=== PATIENT | female | born 1935 | race Caucasian/White ===

== ENCOUNTER 2016-09-11 11:46 | Inpatient (IN) | payer MEDICARE, OTHER ==
[2016-09-11] VITALS (9 sets, daily range): BP systolic 138–170; BP diastolic 58–87; PULSE 77–88; RESP 14–20; TEMP 96.9–98.7; O2SAT 93–98
[~2016-09-11] VITALS: Ht 152.4 cm; Wt 59.0 kg
[~2016-09-11 11:46] MED LIST: CALC1CHW30 CHEW; DONE10TA7 PO; ERGO1CAP10 PO; MEMA28CA PO; PANT40TA3 PO; POTA8TAB3 PO; RISP0.252 PO
--- NOTE | 2016-09-11 12:20 | PD ---
HPI . Painful lesion on her right gregory Chief Complaint: Skin Problem Time Seen by Provider: 12:04 Travel History International Travel<30 days: No Contact w/Intl Traveler<30days: No Traveled to known affect area: No History of Present Illness HPI The patient presents with her elderly with the chief complaint of a painful lesion on her right gregory. They do not know how it is that she obtained the lesion. They think that his been there for a couple of weeks. She has been seen by her primary care physician for same. They are using an unknown cream on the wound. She denies any associated fevers or chills or nausea or vomiting. PFSH Past Medical History Alzheimer's Disease: Yes (dementia) Arthritis: No Asthma: Yes Autoimmune Disease: No Anxiety: Yes (possible history of anxiety) Depression: No Heart Rhythm Problems: No Cancer: No Cardiovascular Problems: No High Cholesterol: Yes Chemotherapy: No Chest Pain: No Congestive Heart Failure: No COPD: No Cerebrovascular Accident: No Dementia: Yes (LEWY BODY ) Diabetes: No Diminished Hearing: No Endocrine: No Gastrointestinal Disorders: No GERD: Yes Genitourinary: Yes (UTI) Headaches: Yes Hepatitis: No Heparin Induced Thrombocytopen: No Hypertension: Yes Implanted Vascular Access Dvce: No Insomnia: Yes Kidney Stones: No Medical other: Yes (GERD; ESOPHAGEAL STRICTURE(PT HAD EGD WITH DILATION )) Musculoskeletal: Yes (DEGERATIVE DISK DZ) Neurologic: No Psychiatric: No Reproductive: No Respiratory: Yes (SLEEP APNEA; ASTHMA) Immunizations Current: Yes Migraines: No Radiation Therapy: No Renal Failure: No Seizures: No Sickle Cell Disease: No Sleep Apnea: No Thyroid Disease: No Ulcer: No PNEUMOCCOCAL Vaccine (Year): 1 Menopausal: Yes Past Surgical History Abdominal Surgery: Yes (CHOLECYSTECTOMY) Arteriovenous Shunt: No Cholecystectomy: Yes Joint Replacement: Yes (HIP LEFT) Neurologic Surgery: Yes (LUMBAR LAMINECTOMY) Oral Surgery: Yes (AGE 5 T&A) Pacemaker: No Thoracic Surgery: No Other Surgery: Yes Social History Alcohol Use: Yes (OCC WINE WITH DINNER) Tobacco Use: No Substance Use: No Allergies-Medications (Allergen,Severity, Reaction): Coded Allergies: Latex (Unverified Allergy, Intermediate, Rash, 08/31/16) Loblolly [place] Tree (Verified Allergy, Intermediate, Hives, 08/31/16) Hives and sneezing Cardizem (Verified Allergy, Mild, FAINTING, 08/31/16) Egg Allergy (Verified Allergy, Mild, Nausea/Vomiting, 08/31/16) Neosporin (Verified Allergy, Mild, EDEMA OF EYES, 08/31/16) Tetanus Immune Globulin (Verified Allergy, Mild, EDEMA OF ARMS, 08/31/16) Tofranil (Verified Allergy, Mild, VISUAL DISTURBANCE, 08/31/16) Valium (Verified Allergy, Mild, AGITATION, 08/31/16) Lactose (Verified Adverse Reaction, Mild, 08/31/16) Reported Meds & Prescriptions Reported Meds & Active Scripts Active Reported Potassium Chloride CR (Potassium Chloride) 8 Meq Tab 8 Meq PO BID Vitamin D (Ergocalciferol) 50,000 Unit Cap 50,000 Units PO Q7D Citracal+D3 (Hjmfger-Kzbwwbsfnp-Mxnmymu D) 250-107-500 Mg-Mg-Unit Chew 1 Ea CHEW TID Namenda Xr (Memantine) 28 Mg Caper 28 Mg PO DAILY Pantoprazole (Pantoprazole Sodium) 40 Mg Tab 40 Mg PO DAILY Donepezil 10 Mg Tab 10 Mg PO BID Risperidone 0.25 Mg Tab 0.25 Mg PO DAILY Review of Systems ROS Limitations: Poor Historian (patient has dementia) Except as stated in HPI: all other systems reviewed are Neg General / Constitutional: No: Fever, Chills Gastrointestinal: No: Nausea, Vomiting Musculoskeletal: Positive: Pain Skin: Positive Lesions Physical Exam Narrative GENERAL: Pleasantly confused elderly woman in no acute distress SKIN: Warm and dry. She has an ulcerative lesion to the right anterior gregory. There is some surrounding erythema but no warmth. It does not seem to be tender to her. There is no lymphangitis or lymphadenopathy. HEAD: Atraumatic. Normocephalic. EYES: Pupils equal and round. ENT: No nasal bleeding or discharge. Mucous membranes pink and moist. NECK: Trachea midline. CARDIOVASCULAR: Regular rate and rhythm. RESPIRATORY: No accessory muscle use. MUSCULOSKELETAL: No obvious deformities. No edema. NEUROLOGICAL: Awake and alert. No obvious cranial nerve deficits. Motor grossly within normal limits. Normal speech. PSYCHIATRIC: Appropriate mood and affect; confused Data Data Last Documented VS Vital Signs Date Time Temp Pulse Resp B/P Pulse Ox O2 Delivery O2 Flow Rate FiO2 09/11/16 13:35 77 18 143/82 95 Room Air 09/11/16 11:53 98.7 Orders Complete Blood Count With Diff (09/11/16 12:13) Blood Culture (09/11/16 12:13) Wound Culture And Gram Stain (09/11/16 12:13) Westergren Sedimentation Rate (09/11/16 12:13) Tibia/Fibula (Ap/Lat) (09/11/16 12:13) Lactic Acid (09/11/16 12:38) Cefazolin 2 Gm Premix (Ancef 2 Gm Premix (09/11/16 13:45) Comprehensive Metabolic Panel (09/11/16 14:10) Labs Laboratory Tests Test 09/11/16 09/11/16 12:35 12:43 White Blood Count 15.6 TH/MM3 Red Blood Count 4.95 MIL/MM3 Hemoglobin 14.4 GM/DL Hematocrit 43.6 % Mean Corpuscular Volume 88.0 FL Mean Corpuscular Hemoglobin 29.1 PG Mean Corpuscular Hemoglobin 33.0 % Concent Red Cell Distribution Width 13.5 % Platelet Count 227 TH/MM3 Mean Platelet Volume 9.3 FL Neutrophils (%) (Auto) 67.6 % Lymphocytes (%) (Auto) 18.4 % Monocytes (%) (Auto) 11.5 % Eosinophils (%) (Auto) 1.4 % Basophils (%) (Auto) 1.1 % Neutrophils # (Auto) 10.6 TH/MM3 Lymphocytes # (Auto) 2.9 TH/MM3 Monocytes # (Auto) 1.8 TH/MM3 Eosinophils # (Auto) 0.2 TH/MM3 Basophils # (Auto) 0.2 TH/MM3 CBC Comment DIFF FINAL Differential Comment Lactic Acid Level 1.3 mmol/L MDM Medical Decision Making Medical Screen Exam Complete: Yes Emergency Medical Condition: Yes Medical Record Reviewed: Yes (patient was seen in the emergency department on 08/21 for same. The patient had been seen by her primary care provider 2 days prior and was given prescriptions for ammonium lactate and Keflex. She had been using the ammonium lactate but had not yet had the Keflex filled. She was discharged with instructions to take the Keflex. She has since been seen at the wound clinic but I cannot see any notes from them.) Differential Diagnosis Differential diagnosis includes but is not limited to cellulitis, osteomyelitis , sepsis Narrative Course This is an elderly patient who was not able to provide very much history. Her is also not very helpful. She comes in with a wound on her right gregory, the etiology of the wound is unknown. 1:35 PM White blood count is 15.6. Lactic acid is normal. X-ray shows no apparent bony involvement. Sedimentation rate is pending. Abdominal and talked to the again to see whether or not she ever took the Keflex. It is clear that neither the patient nor the know what they 're supposed to be doing at home. We will admit her to the hospital for IV antibiotics and possible placement into a rehabilitation facility until the infection clears. They are clearly unable to take care of this at home. Physician Communication Physician Communication Dr. Gunderson will admit Diagnosis Primary Impression: Cellulitis of right leg Admitting Information Admitting Physician Requests: Admit Condition: Stable Leny Jimenez MD Sep 11, 2016 12:20
[2016-09-11 12:58] LABS: AUTOMATED NEUTROPHIL # 10.6 TH/MM3 (1.8-7.7); BASOPHIL # 0.2 TH/MM3 (0-0.2); BASOPHIL % 1.1 % (0.0-2.0); EOSINOPHIL # 0.2 TH/MM3 (0-0.4); EOSINOPHIL % 1.4 % (0.0-4.0); HEMATOCRIT 43.6 % (35.0-46.0); HEMO FLAGS DIFF FINAL; LYMPH % 18.4 % (9.0-44.0); LYMPHOCYTE # 2.9 TH/MM3 (1.0-4.8); MEAN CORPUSCULAR HEMOGLOBIN 29.1 PG (27.0-34.0); MONO % 11.5 % (0.0-8.0); NEUT % 67.6 % (16.0-70.0); PLATELET COUNT 227 TH/MM3 (150-450); RED BLOOD COUNT 4.95 MIL/MM3 (4.00-5.30); RED CELL DISTRIBUTION WIDTH 13.5 % (11.6-17.2); WHITE BLOOD COUNT 15.6 TH/MM3 (4.0-11.0)
--- NOTE | 2016-09-11 13:04 | RADRPT ---
EXAM DATE/TIME: 09/11/2016 12:58 [facility] COMPARISON: No previous studies available for comparison. INDICATIONS : Ulceration on right lower leg for 2 weeks MEDICAL HISTORY : None. SURGICAL HISTORY : None. ENCOUNTER: Initial ACUITY: 2 weeks PAIN SCORE: 0/10 LOCATION: Right anterior lower leg FINDINGS: Two view examination of the right tibia demonstrates no evidence of fracture or dislocation. Bony mi neralization is normal. Focal soft tissue ulceration anterior distal tibia without subcutaneous emphy sema. CONCLUSION: Soft tissue injury as above. Ed Beauchamp MD on September 11, 2016 at 13:02 Board Certified Radiologist. This report was verified electronically.
[2016-09-11] MEDS ORDERED: ceFAZolin 2 GM PREMIX 50 ML IV ONE (13:45)
[2016-09-11] MEDS ORDERED: SODIUM CHLORIDE 0.9% FLUSH 5 ML FLUSH FLUSH PRN (14:15)
[2016-09-11] MEDS ORDERED: NALOXONE HCL 0.4 MG/ML AMP IV PRN (14:15)
[2016-09-11 14:57] LABS: ALKALINE PHOSPHATASE 59 U/L (45-117); ALT (GPT) 32 U/L (10-53); ANION GAP 12 MEQ/L (5-15); AST (GOT) 45 U/L (15-37); BLOOD UREA NITROGEN 9 MG/DL (7-18); CHLORIDE 100 MEQ/L (98-107); GLOMERULAR FILTRATION RATE 79 ML/MIN (>89); POTASSIUM 3.7 MEQ/L (3.5-5.1); SODIUM (NA) 139 MEQ/L (136-145); TOTAL BILIRUBIN ADULT 0.8 MG/DL (0.2-1.0)
[2016-09-11] MEDS: HEPARIN SODIUM - SQ 10,000 UNITS/ML VIAL SQ SCH (16:18)
[2016-09-11] MEDS: CALCIUM/VITAMIN D 250 MG/125 U TAB PO SCH (18:10)
--- NOTE | 2016-09-11 20:00 | HHI.HP ---
HPI Service [facility] Primary Care Physician Anneliese Michael MD Admission Diagnosis cellutlitis Diagnoses: Travel History International Travel<30 Days: No Contact w/Intl Traveler <30 Da: No Traveled to Known Affected Are: No History of Present Illness Patient is a pleasant 81-year-old female with severe dementia who presents with a one-month history of right lower extremity swelling. She's been seen in wound clinic, antibiotics prescribed, but apparently not administered. Biopsy performed from right lower extremity lesion on 08/31/16 shows well- differentiated squamous cell carcinoma. Patient has severe dementia, no short- term memory, and confounds to make up for her deficits, making history extremely difficult. Patient denies any pain. Says she feels fine. She does not know why she here, but when asked about right lower extremity lesion, says she thinks it started yesterday. , who is an extremely polite gentleman , and is oriented x3 reports that her right lower extremity lesion has been going on for about a month; he is extremely pleasant, however it is apparent that he has little understanding of patient's medical conditions, her medications, and is not aware that she was started on antibiotics. He denies that she has had any fevers or is been complaining of pain or discomfort, or dysuria. He brought her in because the right lower extremity redness was not getting any better Both patient and give me permission to discuss her case with any of her family members. I discussed with her son, who confirms that patient's may have difficulty with understanding intricacies of medical treatment. Discussed with him the biopsy on 08/31 which was positive for squamous cell carcinoma. We discussed the need for the family to be present to assist with organizing medications and arranging outpatient followup. He says he will be in town tomorrow. Review of Systems Other performed and negative except for history of present illness and past medical history. Past Family Social History Past Medical History Severe Alzheimer's dementia GERD History of esophageal stricture with dilation in 2000. Past Surgical History Right hip fracture status post ORIF Dilation of esophageal stricture in 2000 Right rotator cuff repair Cholecystectomy Allergies: Coded Allergies: Latex (Unverified Allergy, Intermediate, Rash, 08/31/16) Loblolly [place] Tree (Verified Allergy, Intermediate, Hives, 08/31/16) Hives and sneezing Cardizem (Verified Allergy, Mild, FAINTING, 08/31/16) Egg Allergy (Verified Allergy, Mild, Nausea/Vomiting, 08/31/16) Neosporin (Verified Allergy, Mild, EDEMA OF EYES, 08/31/16) Tetanus Immune Globulin (Verified Allergy, Mild, EDEMA OF ARMS, 08/31/16) Tofranil (Verified Allergy, Mild, VISUAL DISTURBANCE, 08/31/16) Valium (Verified Allergy, Mild, AGITATION, 08/31/16) Lactose (Verified Adverse Reaction, Mild, 08/31/16) Family History family history unobtainable, patient does not remember. Social History Nonsmoker. Nondrinker. Denies illicit drugs. Lives with her . Physical Exam Vital Signs Vital Signs Date Time Temp Pulse Resp B/P Pulse Ox O2 Delivery O2 Flow Rate FiO2 09/11/16 18:30 138/60 09/11/16 17:10 96.9 79 20 168/64 98 09/11/16 16:16 98.3 80 18 170/74 94 Room Air 09/11/16 13:35 77 18 143/82 95 Room Air 09/11/16 12:06 83 18 09/11/16 12:06 84 18 148/82 95 Room Air 09/11/16 11:53 98.7 88 14 153/87 93 Physical Exam GENERAL: This is a well-nourished, well-developed patient, in no apparent distress.she is alert, however disoriented x4. No short-term memory beyond a few minutes. SKIN: No rashes, ecchymoses or lesions. Cool and dry. HEAD: Atraumatic. Normocephalic. No temporal or scalp tenderness. EYES: Pupils equal round and reactive. Extraocular motions intact. No scleral icterus. No injection or drainage. ENT: Nose without bleeding, purulent drainage or septal hematoma. Throat without erythema, tonsillar hypertrophy or exudate. Uvula midline. Airway patent. NECK: Trachea midline. No JVD or lymphadenopathy. Supple, nontender, no meningeal signs. CARDIOVASCULAR: Regular rate and rhythm without murmurs, gallops, or rubs. RESPIRATORY: Clear to auscultation. Breath sounds equal bilaterally. No wheezes , rales, or rhonchi. GASTROINTESTINAL: Abdomen soft, non-tender, nondistended. No hepato-splenomegaly , or palpable masses. No guarding. MUSCULOSKELETAL: Extremities without clubbing, cyanosis. negative Homans sign bilaterally. Right lower extremity with 3 x 3 cm raised noninfected appearing lesion, at the edge of this lesion is a small skin tear, surrounding erythema for several centimeters circumferentially. No abscess or drainage. NEUROLOGICAL: Awake and alert. Cranial nerves II through XII intact. Motor and sensory grossly within normal limits. Five out of 5 muscle strength in all muscle groups. speech his overall intelligible, however significant word finding difficulty, occasional slurred words at times. reports is baseline. Laboratory Laboratory Tests Test 09/11/16 09/11/16 09/11/16 09/11/16 12:35 12:38 12:43 14:22 White Blood Count 15.6 Red Blood Count 4.95 Hemoglobin 14.4 Hematocrit 43.6 Mean Corpuscular Volume 88.0 Mean Corpuscular Hemoglobin 29.1 Mean Corpuscular Hemoglobin 33.0 Concent Red Cell Distribution Width 13.5 Platelet Count 227 Mean Platelet Volume 9.3 Neutrophils (%) (Auto) 67.6 Lymphocytes (%) (Auto) 18.4 Monocytes (%) (Auto) 11.5 Eosinophils (%) (Auto) 1.4 Basophils (%) (Auto) 1.1 Neutrophils # (Auto) 10.6 Lymphocytes # (Auto) 2.9 Monocytes # (Auto) 1.8 Eosinophils # (Auto) 0.2 Basophils # (Auto) 0.2 CBC Comment DIFF FINAL Differential Comment Erythrocyte Sedimentation Rate 8 Lactic Acid Level 1.3 Sodium Level 139 Potassium Level 3.7 Chloride Level 100 Carbon Dioxide Level 27.0 Anion Gap 12 Blood Urea Nitrogen 9 Creatinine 0.71 Estimat Glomerular Filtration 79 Rate Random Glucose 82 Calcium Level 9.2 Total Bilirubin 0.8 Aspartate Amino Transf 45 (AST/SGOT) Alanine Aminotransferase 32 (ALT/SGPT) Alkaline Phosphatase 59 Total Protein 8.5 Albumin 4.2 Date/Time Procedure Status Source Growth 09/11/16 12:35 Aerobic Blood Culture Received Blood Peripheral Pending 09/11/16 12:35 Anaerobic Blood Culture Received Blood Peripheral Pending Result Diagram: 09/11/16 9166 09/11/16 1422 Assessment and Plan Assessment and Plan //Right lower extremity cellulitis //Right lower extremity squamous cell carcinoma on biopsy 08/31/16 /Failure of outpatient treatment/ - Failure of outpatient treatment, have not been taking antibiotics. does not appear to be able to adequately manage patient's care at home without family assistance. - X-ray negative for osteomyelitis. Blood cultures ordered by ER. - Leukocytosis 15. Vitals and labs appear stable. -Continue on cefazolin scheduled. Serial exams. -Son to arrive tomorrow, and to assist in patient's care //Dementia. Continue home medications. Reorientation necessary. Discussed with patient's son on admission. She has had delirium in the hospital before. - Continue medications. If she develops agitation, would recommend Seroquel as needed //GERD. Continue medications. //prophylaxis. Heparin. Code Status full code per patient and . Discussed Condition With patient, , ED physician, patient's son over the phone. Physician Certification 2 Midnight Certification Type: Admission for Inpatient Services Order for Inpatient Services The services are ordered in accordance with Medicare regulations or non- Medicare payer requirements, as applicable. In the case of services not specified as inpatient-only, they are appropriately provided as inpatient services in accordance with the 2-midnight benchmark. Estimated LOS (days): 3 days is the estimated time the patient will need to remain in the hospital, assuming treatment plan goals are met and no additional complications. Post-Hospital Plan: Not yet determined Rashaad Gunderson MD Sep 11, 2016 20:00
[2016-09-11] MEDS: SODIUM CHLORIDE 0.9% FLUSH 5 ML FLUSH FLUSH SCH (21:43)
[2016-09-11] MEDS: DONEPEZIL HCL 5 MG TAB PO SCH (21:43)
[2016-09-11] MEDS: POTASSIUM CHLORIDE 8 MEQ CONTROLLED RELEASE TAB PO SCH (22:45)
[2016-09-12] MEDS: HEPARIN SODIUM - SQ 10,000 UNITS/ML VIAL SQ SCH ×2 (02:35→13:18)
[2016-09-12 07:00] LABS: BICARBONATE 25.7 MEQ/L (21.0-32.0); POTASSIUM 3.7 MEQ/L (3.5-5.1)
[2016-09-12 07:07] LABS: AUTOMATED NEUTROPHIL # 10.2 TH/MM3 (1.8-7.7); BASOPHIL # 0.2 TH/MM3 (0-0.2); EOSINOPHIL # 0.2 TH/MM3 (0-0.4); EOSINOPHIL % 1.3 % (0.0-4.0); HEMATOCRIT 40.9 % (35.0-46.0); HEMO FLAGS DIFF FINAL; LYMPH % 22.2 % (9.0-44.0); LYMPHOCYTE # 3.6 TH/MM3 (1.0-4.8); MEAN CELL VOLUME 87.4 FL (80.0-100.0); MEAN CORPUSCULAR HEMOGLOBIN 28.8 PG (27.0-34.0); NEUT % 63.5 % (16.0-70.0); PLATELET COUNT 208 TH/MM3 (150-450); RED BLOOD COUNT 4.68 MIL/MM3 (4.00-5.30); RED CELL DISTRIBUTION WIDTH 13.8 % (11.6-17.2); WHITE BLOOD COUNT 16.1 TH/MM3 (4.0-11.0)
[2016-09-12 08:00] VITALS: BP 120/64; PULSE 75; RESP 16; TEMP 97.6; O2SAT 96
[2016-09-12] MEDS: SODIUM CHLORIDE 0.9% FLUSH 5 ML FLUSH FLUSH SCH ×2 (08:15→20:09)
[2016-09-12] MEDS: risperiDONE 0.25 MG TAB PO SCH (08:15)
[2016-09-12] MEDS: PANTOPRAZOLE SOD 40 MG DELAYED RELEASE TAB PO SCH (08:15)
[2016-09-12] MEDS: CALCIUM/VITAMIN D 250 MG/125 U TAB PO SCH ×3 (08:15→17:31)
[2016-09-12] MEDS: POTASSIUM CHLORIDE 8 MEQ CONTROLLED RELEASE TAB PO SCH ×2 (08:15→20:08)
[2016-09-12] MEDS: DONEPEZIL HCL 5 MG TAB PO SCH ×2 (08:15→20:08)
--- NOTE | 2016-09-12 11:56 | HHI.PR ---
Subjective Remarks Follow up for RLE cellulitis and squamous cell carcinoma. The patient is drowsy but awakens easily. Oriented to self only. The patient just reports continued pain at the site of the infection, otherwise denies any other medical complaints. Denies any fevers/chills, chest pain, shortness of breath, nausea/ vomiting. The is at bedside. Explained the infection can be treated with oral antibiotics, he verbalized some understanding. Will discuss with the son. They plan to follow up with her PCP Dr. Michael. Objective Vitals Vital Signs Date Time Temp Pulse Resp B/P Pulse Ox O2 Delivery O2 Flow Rate FiO2 09/12/16 08:00 97.6 75 16 120/64 96 09/11/16 23:51 97.6 79 16 168/58 95 09/11/16 20:36 93 21 09/11/16 20:06 97.7 80 18 149/73 96 09/11/16 18:30 138/60 09/11/16 17:10 96.9 79 20 168/64 98 09/11/16 16:16 98.3 80 18 170/74 94 Room Air 09/11/16 13:35 77 18 143/82 95 Room Air 09/11/16 12:06 83 18 09/11/16 12:06 84 18 148/82 95 Room Air 09/11/16 11:53 98.7 88 14 153/87 93 I/O 09/11/16 09/11/16 09/11/16 09/12/16 09/12/16 09/12/16 07:00 15:00 23:00 07:00 15:00 23:00 Intake Total 580 ml 480 ml Balance 580 ml 480 ml Intake Oral 480 ml 380 ml IV Total 100 ml 100 ml # Voids 3 3 Result Diagram: 09/12/16 0539 09/12/16 0539 Imaging Last Impressions Tibia/Fibula X-Ray 09/11/16 1213 Signed Impressions: Service Date/Time: Sunday, September 11, 2016 12:58 - CONCLUSION: Soft tissue injury as above. Ed Beauchamp MD Objective Remarks GENERAL: Well-nourished, well-developed pleasantly confused elderly female patient in NAD. Significantly diminished short term memor. SKIN: Warm and dry. No rash. HEAD: Normocephalic. Atraumatic. ENT: No nasal bleeding or discharge. Mucous membranes pink and moist. NECK: Supple. Trachea midline. CARDIOVASCULAR: Regular rate and rhythm. S1, S2 noted. No murmur appreciated. RESPIRATORY: No accessory muscle use. Clear to auscultation. Breath sounds equal bilaterally. GASTROINTESTINAL: Abdomen soft, non-tender, nondistended. Normoactive bowel sounds x4. MUSCULOSKELETAL: Extremities without clubbing, cyanosis, or edema. RLE with 3 x 3 cm raised noninfected appearing lesion, at the edge of this lesion is a small skin tear, surrounding erythema for 2-3cm circumferentially. No abscess or drainage. NEUROLOGICAL: Awake and alert, oriented to self only. Motor grossly within normal limits. Normal speech, overall intelligible, however significant word finding difficulty (reportedly this is baseline per at bedside). PSYCHIATRIC: Appropriate mood and affect; insight and judgment limited. Medications and IVs Current Medications Medications (Trade) Dose Ordered Sig/Loc Route Start Time Stop Time Status Last Admin (NS Flush) 2 ml UNSCH PRN FLUSH 09/11/16 14:15 (NS Flush) 2 ml BID FLUSH 09/11/16 21:00 09/12/16 08:15 (Heparin Inj) 5,000 units Q12H SQ 09/11/16 14:15 09/12/16 02:35 (Narcan Inj) 0.4 mg UNSCH PRN IV 09/11/16 14:15 (Aricept) 10 mg BID PO 09/11/16 21:00 09/12/16 08:15 (Protonix) 40 mg DAILY PO 09/12/16 09:00 09/12/16 08:15 (KCl) 8 meq BID PO 09/11/16 21:00 09/12/16 08:15 (risperDAL) 0.25 mg DAILY PO 09/12/16 09:00 09/12/16 08:15 (Oscal-D 250-125) 250 mg TID PO 09/11/16 18:00 09/12/16 08:15 Non-Formulary Medication 28 mg 28 mg DAILY PO 09/12/16 09:00 UNV (Ancef Inj/NS Inj) 100 ml @ 200 mls/hr Q8H IV 09/11/16 22:00 09/12/16 05:55 Urinary Catheter: No Vascular Central Line Catheter: No A/P Problem List: (1) Cellulitis of right leg ICD Code: L03.115 Status: Acute Assessment and Plan 81-year-old female with: //Right lower extremity cellulitis //Right 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 does not appear to be able to adequately manage patient's care at home without family assistance. - X-ray negative for osteomyelitis. Blood cultures negative x1day. - Leukocytosis 15, consistent with previous WBCs. Vitals and labs appear stable. - Continue on IV cefazolin. Serial exams. -Son to arrive today and to assist in patient's care, will discharge on po Keflex, outpatient f/up with PCP - PT recommending [facility], case management consulted //Dementia. Continue home medications. Reorientation necessary. Discussed with patient's son on admission. She has had delirium in the hospital before. - Continue medications. If she develops agitation, would recommend Seroquel as needed. - calm overnight //GERD. Continue medications. //leukocytosis. This is chronic.unknown cause. Patient may have underlying malignancy. Recommend followup with primary care,, oncology referral as outpatient. //prophylaxis. Heparin. Written by Mary Ellen Acosta, acting as scribe for Dr. Gunderson on 09/12/16 at 10:20. The documentation accurately reflects the work performed [id number] by az, Dr. Gunderson on 09/12/16 at 10:20. Discharge Planning Discharge patient to home with [facility] PT/Nursing/Cafeteria Counter Attendant ( son needs to be informed, and in agreement with discharge plan.) Condition on discharge: Improved Regular Diet as tolerated Ad Irma activity, use walker Rx written: Keflex 500mg q8h [id number] Follow-up with primary care physician Dr. Michael in 2-3 days Mary Ellen Acosta PA-C Sep 12, 2016 11:56 Rashaad Gunderson MD Sep 12, 2016 23:04
[2016-09-12 12:00] VITALS: BP 126/59; PULSE 70; RESP 16; TEMP 97.4; O2SAT 92
[2016-09-12] MEDS ORDERED: CEPH500C PO (15:32)
--- NOTE | 2016-09-12 15:33 | HHI.DCPOC ---
Discharge Care Plan Diagnosis: (1) Cellulitis of right leg Your Health Problems Are: Inflammation Swelling Goals to Promote Your Health * To prevent worsening of your condition and complications * To maintain your health at the optimal level Directions to Meet Your Goals Take your medications as prescribed Follow your dietary instruction Follow activity as directed Keep your appointments as scheduled Take your immunizations and boosters as scheduled If your symptoms worsen call your PCP, if no PCP go to Urgent Care Center or Emergency Room Smoking is Dangerous to Your Health. Avoid second hand smoke Call the 24-hour hour crisis hotline for domestic abuse at Mary Ellen Acosta PA-C Sep 12, 2016 15:33
--- NOTE | 2016-09-12 15:35 | HHI.FF ---
Face to Face Verification Diagnosis: (1) Cellulitis of right leg (2) Impaired mobility and activities of daily living (3) Dementia (4) GERD (gastroesophageal reflux disease) Physical Therapy Order: Evaluate and Treat, Improve ambulation, Strength and gait training Home Health Nursing Order: Medical education Signs/symptoms of disease process Nursing assessment with vital signs Instructions: patient will need home health nurse to set up and monitor medications twice- weekly. Anchor Tack Puller Order: To Evaluate: Living conditions/environment, Support services Order: To Provide: Long range planning, Community services I have seen patient Paige Mendosa on 09/12/16. My clinical findings support the need for the requested home health care services because: Ltd mobility - disease progression Deconditioned w/ increased weakness Med compliance is questionable Limited ability to care for self Need for psychosocial assistance Impaired cognition/judgement Infection w/ risk of complications I certify that my clinical findings support that this patient is homebound because: Impaired cognitive ability/safety Unsteady gait/balance Unsafe to leave home unassisted Need for psychosocial assistance Unable to use public transportation Mary Ellen Acosta PA-C Sep 12, 2016 15:35 Rashaad Gunderson MD Sep 12, 2016 22:51
[2016-09-12] MEDS ORDERED: WALKER WHEELS/F1 MIS (15:38)
[2016-09-12 16:00] VITALS: BP 134/64; PULSE 81; RESP 17; TEMP 97.1; O2SAT 95
[2016-09-12 20:00] VITALS: BP 142/68; PULSE 80; RESP 17; TEMP 96.9; O2SAT 97
[2016-09-13] VITALS: BP 167/72; PULSE 78; RESP 17; TEMP 97.6; O2SAT 94
[2016-09-13] MEDS: HEPARIN SODIUM - SQ 10,000 UNITS/ML VIAL SQ SCH ×2 (02:37→14:15)
[2016-09-13 08:00] VITALS: BP 122/60; PULSE 77; RESP 16; TEMP 98.4; O2SAT 93
[2016-09-13] MEDS: DONEPEZIL HCL 5 MG TAB PO SCH (09:30)
[2016-09-13] MEDS: POTASSIUM CHLORIDE 8 MEQ CONTROLLED RELEASE TAB PO SCH (09:30)
[2016-09-13] MEDS: PANTOPRAZOLE SOD 40 MG DELAYED RELEASE TAB PO SCH (09:30)
[2016-09-13] MEDS: risperiDONE 0.25 MG TAB PO SCH (09:30)
[2016-09-13] MEDS: CALCIUM/VITAMIN D 250 MG/125 U TAB PO SCH ×2 (09:30→13:00)
[2016-09-13] MEDS ORDERED: ACETAMINOPHEN 325 MG TAB PO PRN (11:00)
[2016-09-13 12:00] VITALS: BP 117/57; PULSE 75; RESP 17; TEMP 97.4; O2SAT 93
[2016-09-13 12:05] LABS: BACTERIA, URINE RARE /hpf; BLOOD, URINE NEG (NEG); COMMENT (UR) CULTURE INDICATED; CULTURE IF INDICATED CULTURE INDICATED; GLUCOSE,URINE NEG (NEG); KETONE, URINE NEG (NEG); MUCUS URINE FEW /lpf (OCC); NITRITE,URINE NEG (NEG); PH, URINE 5.5 (5.0-8.5); SQUAMOUS EPITHELIAL CELL URINE 5 /hpf (0-5); TRANSITIONAL EPI CELLS, URINE <1 /hpf; URINE COLOR YELLOW (YELLW/STRAW)
[2016-09-13 12:43] LABS: BICARBONATE 27.2 MEQ/L (21.0-32.0); POTASSIUM 3.7 MEQ/L (3.5-5.1)
[2016-09-13] MEDS ORDERED: AMOX500T PO (13:45)
[2016-09-13] MEDS ORDERED: BACT800T5 PO (13:45)
[2016-09-13] MEDS ORDERED: CEPHALEXIN MONOHYDRATE 500 MG CAP PO SCH (14:00)
[2016-09-13] MEDS ORDERED: FLOR250C PO (14:56)
[2016-09-13 16:00] VITALS: BP 119/62; PULSE 76; RESP 16; TEMP 96.3; O2SAT 92
--- NOTE | 2016-09-13 17:11 | HHI.PR ---
Subjective Remarks Patient seen today around 10:30 AM. and son at bedside. -Initially nursing reported that patient had burning with urination. Patient denies burning with urination. She is very suggestible. Upon telling her that somebody had reported that she has burning with urination she says that it may have started sometime ago. Discussed with son, she employs confounding frequently. Nursing later reports the patient denies any dysuria. There've been some concern over patient's pannus being tender, however patient subsequently denies any tenderness. Discussed with nursing. No fevers reported. The son has gone to patient's house, found that she only took half of her prescription for Keflex. Given that there is no improvement on Keflex as outpatient, will switch to amoxicillin and Bactrim. Discussed with son several times throughout the day. He is grateful for home health. He will make sure that patient feels and receives all of her medications. He says he is confident that patient's and patient and take care of day-to-day activities, activities of daily living, but do need help with medications, and arrange outpatient appointments. He says he will help with this. Objective Vital Signs Date Time Temp Pulse Resp B/P Pulse Ox O2 Delivery O2 Flow Rate FiO2 09/13/16 16:00 96.3 76 16 119/62 92 09/13/16 12:00 97.4 75 17 117/57 93 09/13/16 08:00 98.4 77 16 122/60 93 09/13/16 00:00 97.6 78 17 167/72 94 09/12/16 20:00 96.9 80 17 142/68 97 I/O 09/12/16 09/12/16 09/12/16 09/13/16 09/13/16 09/13/16 07:00 15:00 23:00 07:00 15:00 23:00 Intake Total 480 ml 1180 ml 340 ml 340 ml 360 ml Output Total 300 ml 1600 ml 250 ml 400 ml Balance 480 ml 880 ml -1260 ml 90 ml -40 ml Intake Oral 380 ml 1080 ml 240 ml 240 ml 360 ml IV Total 100 ml 100 ml 100 ml 100 ml Output Urine Total 300 ml 1600 ml 250 ml 400 ml Bladder Scan Volume Amount 72 ml # Voids 3 # Bowel Movements 0 2 1 Result Diagram: 09/12/16 0539 09/13/16 1212 Objective Remarks GENERAL: Patient awake, alert. Completely disoriented as before. Still with word finding difficulty and occasional slurred words. At baseline per her and son at bedside. SKIN: Warm and dry. HEAD: Normocephalic. EYES: No scleral icterus. No injection or drainage. NECK: Supple, trachea midline. No JVD. CARDIOVASCULAR: Regular rate and rhythm without murmurs, gallops, or rubs. RESPIRATORY: Breath sounds equal bilaterally. No accessory muscle use. GASTROINTESTINAL: Abdomen soft, non-tender, nondistended. MUSCULOSKELETAL: No cyanosis, or edema. Right lower extremity with 3 x 3 noninfected appearing raised skin lesion, with small area broken skin, likely from recent biopsy at the periphery. Today still with 2-3 cm of surrounding erythema, however this is again central sterile technician than yesterday. BACK: Nontender without obvious deformity. No CVA tenderness. 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 does not appear to be able to adequately manage patient's care at home without family assistance. - X-ray negative for osteomyelitis. Blood cultures negative x1day. - Leukocytosis 15, consistent with previous WBCs. Vitals and labs appear stable. - Continue on IV cefazolin. Serial exams. -Son to arrive today and to assist in patient's care, will discharge on po Keflex, outpatient f/up with PCP - PT recommending C, case management consulted = 09/13. Patient has an slight improvement in erythema overnight, however not almost resolved as I had expected. As patient failed course of Keflex, will move to amoxicillin and Bactrim 10 day course. We'll prescribe florastor for clostridium difficile prophylaxis. Close follow-up with wound care, primary care. Son has been very helpful, says he will ensure compliance with medication regimen. Home health for medication management ordered as well. //Dementia. Continue home medications. Reorientation necessary. Discussed with patient's son on admission. She has had delirium in the hospital before. - Continue medications. If she develops agitation, would recommend Seroquel as needed. - calm again overnight //GERD. Continue medications. //leukocytosis. This is chronic.unknown cause. Patient may have underlying malignancy. Recommend followup with primary care,, oncology referral as outpatient. Discussed with son on 09/13 the patient has chronic elevation in white blood cell count, and if continues will need hematology evaluation. //prophylaxis. Heparin. Discharge Planning Discharge home with home health for PT, medication management, public health social worker. Son will ensure patient receives her medications and follow-up. Rashaad Gunderson MD Sep 13, 2016 17:11
--- NOTE | 2016-09-13 17:20 | HHI.DS ---
cc: Charles Santacruz DPM; Anneliese Michael MD Discharge Summary Admission Date Sep 11, 2016 at 14:12 Discharge Date: Sep 13, 2016 Admitting Diagnosis cellutlitis (1) Cellulitis of right leg ICD Code: L03.115 Procedures No invasive procedures performed. Brief History - From Admission Patient is a pleasant 81-year-old female with severe dementia who presents with a one-month history of right lower extremity swelling. She's been seen in wound clinic, antibiotics prescribed, but apparently not administered. Biopsy performed from right lower extremity lesion on 08/31/16 shows well- differentiated squamous cell carcinoma. Patient has severe dementia, no short- term memory, and confounds to make up for her deficits, making history extremely difficult. Patient denies any pain. Says she feels fine. She does not know why she here, but when asked about right lower extremity lesion, says she thinks it started yesterday. , who is an extremely polite gentleman , and is oriented x3 reports that her right lower extremity lesion has been going on for about a month; he is extremely pleasant, however it is apparent that he has little understanding of patient's medical conditions, her medications, and is not aware that she was started on antibiotics. He denies that she has had any fevers or is been complaining of pain or discomfort, or dysuria. He brought her in because the right lower extremity redness was not getting any better Both patient and give me permission to discuss her case with any of her family members. I discussed with her son, who confirms that patient's may have difficulty with understanding intricacies of medical treatment. Discussed with him the biopsy on 08/31 which was positive for squamous cell carcinoma. We discussed the need for the family to be present to assist with organizing medications and arranging outpatient followup. He says he will be in town tomorrow. CBC/BMP: 09/12/16 0539 09/13/16 1212 Significant Findings Laboratory Tests Test 09/11/16 09/11/16 09/12/16 09/13/16 12:35 14:22 05:39 11:40 White Blood Count 15.6 TH/MM3 16.1 TH/MM3 (4.0-11.0) (4.0-11.0) Monocytes (%) (Auto) 11.5 % 12.0 % (0.0-8.0) (0.0-8.0) Neutrophils # (Auto) 10.6 TH/MM3 10.2 TH/MM3 (1.8-7.7) (1.8-7.7) Monocytes # (Auto) 1.8 TH/MM3 1.9 TH/MM3 (0-0.9) (0-0.9) Estimat Glomerular Filtration 79 ML/MIN (>89) Rate Aspartate Amino Transf 45 U/L (15-37) (AST/SGOT) Total Protein 8.5 GM/DL (6.4-8.2) Urine Turbidity HAZY (CLEAR) Urine Leukocyte Esterase MOD (NEG) Urine WBC 23 /hpf (0-5) Urine Bacteria RARE /hpf (NONE) Urine Mucus FEW /lpf (OCC) Test 09/13/16 12:12 Estimat Glomerular Filtration 74 ML/MIN (>89) Rate Random Glucose 114 MG/DL (74-106) Imaging Last Impressions Tibia/Fibula X-Ray 09/11/16 1213 Signed Impressions: Service Date/Time: Sunday, September 11, 2016 12:58 - CONCLUSION: Soft tissue injury as above. Ed Beauchamp MD PE at Discharge GENERAL: Well-nourished, well-developed pleasantly confused elderly female patient in [facility]. Significantly diminished short term memor. SKIN: Warm and dry. No rash. HEAD: Normocephalic. Atraumatic. ENT: No nasal bleeding or discharge. Mucous membranes pink and moist. NECK: Supple. Trachea midline. CARDIOVASCULAR: Regular rate and rhythm. S1, S2 noted. No murmur appreciated. RESPIRATORY: No accessory muscle use. Clear to auscultation. Breath sounds equal bilaterally. GASTROINTESTINAL: Abdomen soft, non-tender, nondistended. Normoactive bowel sounds x4. MUSCULOSKELETAL: Extremities without clubbing, cyanosis, or edema. RLE with 3 x 3 cm raised noninfected appearing lesion, at the edge of this lesion is a small skin tear, surrounding erythema for 2-3cm circumferentially. No abscess or drainage. NEUROLOGICAL: Awake and alert, oriented to self only. Motor grossly within normal limits. Normal speech, overall intelligible, however significant word finding difficulty (reportedly this is baseline per at bedside). PSYCHIATRIC: Appropriate mood and affect; insight and judgment limited. Hospital Course White blood cell count found to be elevated at 15, however this is at baseline. As patient had failed outpatient medical therapy, likely secondary to missed medications, she was admitted and treated with IV cefazolin. She experienced improvement in right lower extremity cellulitis. Due to concern that patient failed outpatient therapy with Keflex, treatment was switched to amoxicillin and Bactrim. We discussed with son that biopsy recently performed 08/31 as outpatient shows squamous cell carcinoma, and that she will need follow-up for this. Son agreed to assist with medications at home, and home health for medication management was ordered at discharge. Likely secondary to suggestion, patient initially denied dysuria, however subsequently reported burning with urination during admission. Urinalysis was performed from catch, however only showed 23 white blood cells, 5 squamous epithelial cells. Patient subsequently denied dysuria. She will nevertheless be on Bactrim as above. Urine culture reflexed, will need to be followed up by primary care. Patient has a history of clostridium difficile diarrhea in the past. No issues with this currently, however have ordered Florastor for prophylaxis. For problem-based summary from most recent progress note, please see below. 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 does not appear to be able to adequately manage patient's care at home without family assistance. - X-ray negative for osteomyelitis. Blood cultures negative x1day. - Leukocytosis 15, consistent with previous WBCs. Vitals and labs appear stable. - Continue on IV cefazolin. Serial exams. -Son to arrive today and to assist in patient's care, will discharge on po Keflex, outpatient f/up with PCP - PT recommending C, case management consulted = 09/13. Patient has an slight improvement in erythema overnight, however not almost resolved as I had expected. As patient failed course of Keflex, will move to amoxicillin and Bactrim 10 day course. We'll prescribe florastor for clostridium difficile prophylaxis. Close follow-up with wound care, primary care. Son has been very helpful, says he will ensure compliance with medication regimen. Home health for medication management ordered as well. //Dementia. Continue home medications. Reorientation necessary. Discussed with patient's son on admission. She has had delirium in the hospital before. - Continue medications. If she develops agitation, would recommend Seroquel as needed. - calm again overnight //GERD. Continue medications. //leukocytosis. This is chronic.unknown cause. Patient may have underlying malignancy. Recommend followup with primary care,, oncology referral as outpatient. Discussed with son on 09/13 the patient has chronic elevation in white blood cell count, and if continues will need hematology evaluation. //prophylaxis. Heparin. Pt Condition on Discharge: Good Discharge Disposition: Disch w/ Home Health Serv Discharge Time: > 30 minutes Discharge Instructions DIET: Follow Instructions for: As Tolerated, No Restrictions Activities you can perform: Regular-No Restrictions Follow up Referrals: PCP Follow-up - 2-3 Days with Anneliese Michael MD [facility] - 3-5 Days with Charles Santacruz DPM New Medications: Amoxicillin (Amoxicillin) 500 Mg Tab 500 MG PO TID Infection #30 Ref 0 TAB Saccharomyces Boulardii (Florastor) 250 Mg Cap 250 MG PO BID prevent C diff Days 30 Ref 0 CAP Sulfamethoxazole-Trimethoprim (Bactrim DS) 800-160 Mg Tab 1 TAB PO BID Infection #20 Ref 0 TAB Walker with Front Wheels (Walker with Front Wheels) 1 Mis Mis 1 EA .ROUTE DIRECTED #1 Ref 0 EA Continued Medications: Geyqnqa-Ofgkmqlood-Eseigiv D (Citracal+D3) 250-107-500 Mg-Mg-Unit Chew 1 EA CHEW TID TAB Donepezil (Donepezil) 10 Mg Tab 10 MG PO BID Dementia #30 Ref 0 TAB Ergocalciferol (Vitamin D) 50,000 Unit Cap 15738 UNITS PO Q7D Nutritional Supplement #30 Ref 0 CAP Memantine Er (Namenda Xr) 28 Mg Caper 28 MG PO DAILY Alzheimer Disease #30 Ref 0 CAP Pantoprazole (Pantoprazole) 40 Mg Tab 40 MG PO DAILY Reflux #30 Ref 0 TAB Potassium Chloride ER (Potassium Chloride CR) 8 Meq Tab 8 MEQ PO BID Electrolyte Replacement Ref 0 TAB Risperidone (Risperidone) 0.25 Mg Tab 0.25 MG PO DAILY #30 Ref 0 TAB Rashaad Gunderson MD Sep 13, 2016 17:19
[2016-09-13] MEDS ORDERED: DOXY100C PO (18:34)
[2016-09-13] MEDS ORDERED: SULFAMETHOXAZOLE-TRIMETHOPRIM DS 800-160 MG TAB PO SCH (21:00)
[2016-09-13] MEDS ORDERED: AMOXICILLIN 875 MG TAB PO SCH (21:00)
[2016-09-14] MEDS ORDERED: PT OWN MED: NAMENDA XR 28MG PO DAILY PO SCH (09:00)
[2016-09-21] MEDS ORDERED: LIPI10TA PO (13:55)
== END 2016-09-13 17:21 | disposition home health service (06) | DRG 603 ==
LOC: NEPC 11:46 → NEDA 14:12 → N07A 16:52
PROVIDERS: ADMIT Internal Medicine; ATTEND Internal Medicine
DX: L03.115 Cellulitis of right lower limb (principal); G30.9 Alzheimer's disease, unspecified; F02.80 Dementia in other diseases classified elsewhere, unspecified severity, without behavioral disturbance, psychotic disturbance, mood disturbance, and anxiety; I10 Essential (primary) hypertension; K21.9 Gastro-esophageal reflux disease without esophagitis; E78.00 Pure hypercholesterolemia, unspecified; G47.30 Sleep apnea, unspecified; J45.909 Unspecified asthma, uncomplicated
CPT/HCPCS: 73590; 80048; 80053; 81001; 83605; 85025; 85652; 87040; 87086; 96374; J0690; J1644

== ENCOUNTER 2016-09-14 20:19 | Observation (INO) | payer MEDICARE, OTHER ==
[~2016-09-14] VITALS: Ht 149.9 cm; Wt 59.0 kg
[~2016-09-14 20:19] MED LIST changes: +AMOX500T PO; +DOXY100C PO; +FLOR250C PO; +WALKER WHEELS/F1 MIS
[2016-09-14 20:53] VITALS: BP 148/87; PULSE 76; RESP 18; TEMP 98.1; O2SAT 95
[2016-09-15] VITALS (12 sets, daily range): BP systolic 138–171; BP diastolic 56–89; PULSE 71–93; RESP 17–20; TEMP 97.2–98.4; O2SAT 91–99
[2016-09-15] MEDS ORDERED: SODIUM CHLORIDE 0.9% FLUSH 5 ML FLUSH FLUSH PRN (00:15)
[2016-09-15] MEDS ORDERED: SODIUM CHLORIDE 0.9% FLUSH 5 ML FLUSH IVF PRN (00:15)
[2016-09-15] MEDS ORDERED: NALOXONE HCL 0.4 MG/ML AMP IV PRN (00:15)
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
[2016-09-15 00:40] LABS: AUTOMATED NEUTROPHIL # 11.5 TH/MM3 (1.8-7.7); BASOPHIL # 0.2 TH/MM3 (0-0.2); BASOPHIL % 1.3 % (0.0-2.0); EOSINOPHIL # 0.4 TH/MM3 (0-0.4); EOSINOPHIL % 2.2 % (0.0-4.0); HEMATOCRIT 43.2 % (35.0-46.0); LYMPH % 20.2 % (9.0-44.0); LYMPHOCYTE # 3.4 TH/MM3 (1.0-4.8); MEAN CELL VOLUME 88.9 FL (80.0-100.0); MEAN CORPUSCULAR HEMOGLOBIN 28.9 PG (27.0-34.0); MEAN CORPUSCULAR HGB CONC 32.5 % (32.0-36.0); MONO % 9.1 % (0.0-8.0); NEUT % 67.2 % (16.0-70.0); PLATELET COUNT 218 TH/MM3 (150-450); RED BLOOD COUNT 4.86 MIL/MM3 (4.00-5.30); RED CELL DISTRIBUTION WIDTH 13.9 % (11.6-17.2)
[2016-09-15 00:41] LABS: HEMO FLAGS DIFF FINAL
[2016-09-15 00:49] LABS: BICARBONATE 28.1 MEQ/L (21.0-32.0)
[2016-09-15] MEDS: SODIUM CHLORIDE 0.9% FLUSH 5 ML FLUSH FLUSH SCH ×2 (08:39→20:31)
[2016-09-15] MEDS: AMOXICILLIN (TRIHYDRATE) 500 MG CAP PO SCH ×3 (08:41→19:05)
[2016-09-15] MEDS: PANTOPRAZOLE SOD 40 MG DELAYED RELEASE TAB PO SCH (08:41)
[2016-09-15] MEDS: DOXYCYCLINE HYCLATE 100 MG TAB PO SCH ×2 (08:41→20:32)
[2016-09-15] MEDS: ENOXAPARIN SODIUM 40 MG/0.4 ML SYRINGE SQ SCH (08:41)
[2016-09-15] MEDS: risperiDONE 0.25 MG TAB PO SCH (08:41)
[2016-09-15] MEDS: DONEPEZIL HCL 5 MG TAB PO SCH ×2 (08:42→20:31)
[2016-09-15] MEDS: MEMANTINE HCL 10 MG TAB PO SCH ×2 (08:42→20:31)
[2016-09-15] MEDS: POTASSIUM CHLORIDE 8 MEQ CONTROLLED RELEASE TAB PO SCH ×2 (08:42→20:31)
[2016-09-15] MEDS: LACTOBACILLUS ACIDOPHILUS TAB PO SCH ×2 (09:01→20:31)
[2016-09-15] MEDS ORDERED: traMADol HCL 50 MG TAB PO PRN (15:15)
--- NOTE | 2016-09-15 15:18 | HHI.HP ---
[facility] Service [facility] Primary Care Physician Anneliese Michael MD Admission Diagnosis Leg Pain, Dementia, FTT. 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 She was brought by her . The patient was just admitted to this hospital a week ago and was discharged antibiotics. The patient's son is at bedside and tells me that they did fill the antibiotics but it's unclear whether or not the patient was taking them as her also has dementia. The patient is unable to provide for further reliable history due to dementia. She does complain of leg pain and tenderness. She had a biopsy of the lesion on August [address] Santacruz which revealed squamous cell carcinoma. She is supposed to follow-up with Dr. Santacruz but has not been back to his office yet. Review of Systems ROS Limitations: Poor Historian Past Family Social History Past Medical History Advanced Alzheimer's dementia GERD History of esophageal stricture with dilation in 2000. Past Surgical History Right hip fracture status post ORIF Dilation of esophageal stricture in 2000 Right rotator cuff repair Cholecystectomy Reported Medications Allergies Coded Allergies Type Severity Reaction Last Updated Verified Latex Allergy Intermediate Rash 09/14/16 No Loblolly [place] Tree Allergy Intermediate Hives 09/14/16 Yes Cardizem Allergy Mild FAINTING 09/14/16 Yes Egg Allergy Allergy Mild Nausea/Vomiting 09/14/16 Yes Neosporin Allergy Mild EDEMA OF EYES 09/14/16 Yes Tetanus Immune Globulin Allergy Mild EDEMA OF ARMS 09/14/16 Yes Tofranil Allergy Mild VISUAL DISTURBANCE 09/14/16 Yes Valium Allergy Mild AGITATION 09/14/16 Yes Sulfa Allergy Unknown Unknown 09/14/16 No Lactose Adverse Reaction Mild 09/14/16 Yes Active Scripts Medications Dose Route/Sig Days Date Category Doxycycline Hyclate 100 Mg Cap 100 Mg PO BID 10 09/13/16 Rx Florastor (Saccharomyces Boulardii) 250 Mg Cap 250 Mg PO BID 30 09/13/16 Rx Amoxicillin 500 Mg Tab 500 Mg PO TID 09/13/16 Rx Walker with Front Wheels (Device) 1 Mis Mis 1 Ea .ROUTE DIRECTED 09/12/16 Rx Potassium Chloride CR (Potassium Chloride) 8 Meq Tab 8 Meq PO BID 08/31/16 Reported Vitamin D (Ergocalciferol) 50,000 Unit Cap 50,000 Units PO Q7D 08/31/16 Reported Citracal+D3 (Kswjxbq-Hiuvlcsudk-Ibnazii D) 250-107-500 Mg-Mg-Unit Chew 1 Ea CHEW TID 08/31/16 Reported Namenda Xr (Memantine) 28 Mg Caper 28 Mg PO DAILY 08/31/16 Reported Pantoprazole (Pantoprazole Sodium) 40 Mg Tab 40 Mg PO DAILY 08/31/16 Reported Donepezil 10 Mg Tab 10 Mg PO BID 08/31/16 Reported Risperidone 0.25 Mg Tab 0.25 Mg PO DAILY 08/31/16 Reported Allergies: Coded Allergies: Latex (Unverified Allergy, Intermediate, Rash, 09/14/16) Loblolly [place] Tree (Verified Allergy, Intermediate, Hives, 09/14/16) Hives and sneezing Cardizem (Verified Allergy, Mild, FAINTING, 09/14/16) Egg Allergy (Verified Allergy, Mild, Nausea/Vomiting, 09/14/16) Neosporin (Verified Allergy, Mild, EDEMA OF EYES, 09/14/16) Tetanus Immune Globulin (Verified Allergy, Mild, EDEMA OF ARMS, 09/14/16) Tofranil (Verified Allergy, Mild, VISUAL DISTURBANCE, 09/14/16) Valium (Verified Allergy, Mild, AGITATION, 09/14/16) Sulfa (Unverified Allergy, Unknown, Unknown, 09/14/16) appears on outpatient pharmacy allergy profile. family unable to provide any clarification. Lactose (Verified Adverse Reaction, Mild, 09/14/16) Family History Review noncontributory Social History No active tobacco or drugs Physical Exam Vital Signs Vital Signs Date Time Temp Pulse Resp B/P Pulse Ox O2 Delivery O2 Flow Rate FiO2 09/15/16 13:37 143/72 09/15/16 13:30 97.2 90 20 142/73 91 09/15/16 11:14 77 18 145/65 95 Room Air 09/15/16 07:26 98.4 72 17 156/71 93 Room Air 09/15/16 07:26 66 09/15/16 07:26 93 Room Air 09/15/16 06:20 98.3 75 18 140/59 94 Room Air 09/15/16 04:50 77 18 148/65 93 Room Air 09/15/16 01:30 71 18 151/56 93 Room Air 09/15/16 00:25 99 Room Air 09/15/16 00:00 98.4 80 18 171/79 99 Room Air 09/14/16 21:41 18 09/14/16 20:53 98.1 76 18 148/87 95 Physical Exam GENERAL: Well-nourished, well-developed patient. SKIN: Warm and dry. Squamous cell lesion on the right gregory. It is tender to palpation. HEAD: Normocephalic. EYES: No scleral icterus. No injection or drainage. NECK: Supple, trachea midline. No JVD or lymphadenopathy. CARDIOVASCULAR: Regular rate and rhythm without murmurs, gallops, or rubs. RESPIRATORY: Breath sounds equal bilaterally. No accessory muscle use. GASTROINTESTINAL: Abdomen soft, non-tender, nondistended. EXTREMITIES: No cyanosis, or edema. NEUROLOGICAL: Awake, alert, and oriented to self only. Pleasantly demented. Laboratory Laboratory Tests Test 09/15/16 00:25 White Blood Count 17.0 Red Blood Count 4.86 Hemoglobin 14.0 Hematocrit 43.2 Mean Corpuscular Volume 88.9 Mean Corpuscular Hemoglobin 28.9 Mean Corpuscular Hemoglobin 32.5 Concent Red Cell Distribution Width 13.9 Platelet Count 218 Mean Platelet Volume 9.8 Neutrophils (%) (Auto) 67.2 Lymphocytes (%) (Auto) 20.2 Monocytes (%) (Auto) 9.1 Eosinophils (%) (Auto) 2.2 Basophils (%) (Auto) 1.3 Neutrophils # (Auto) 11.5 Lymphocytes # (Auto) 3.4 Monocytes # (Auto) 1.5 Eosinophils # (Auto) 0.4 Basophils # (Auto) 0.2 CBC Comment DIFF FINAL Differential Comment Sodium Level 140 Potassium Level 4.0 Chloride Level 103 Carbon Dioxide Level 28.1 Anion Gap 9 Blood Urea Nitrogen 12 Creatinine 0.67 Estimat Glomerular Filtration 84 Rate Random Glucose 94 Calcium Level 9.9 Result Diagram: 09/15/16 0025 09/15/16 0025 Assessment and Plan Assessment and Plan -Dementia and inability to care for self. She does not have capacity. She was Tse acted by the ED physician. She will need placement in assisted living facility. Her daughter Paige Edmondson has healthcare power of attorney lawyer. I did review the form. -Squamous cell carcinoma the right lower extremity. Possibly with previous cellulitis. Does not appear infected currently. Will put her on amoxicillin and monitor. Ultram when necessary pain. She needs to follow-up with Dr. Santacruz for referral to dermatology. -GERD and history of esophageal stricture. Continue PPI. Selam Mcgarry MD Sep 15, 2016 15:18
[2016-09-16] VITALS: BP_SYST 142; BP_SYST 163; BP_DIAS 78; BP_DIAS 85; PULSE 56; PULSE 78; RESP 20; TEMP 96.8; TEMP 97.4; O2SAT 91; O2SAT 96
[2016-09-16 04:00] VITALS: BP 174/98; PULSE 73; RESP 16; TEMP 96.8; O2SAT 94
[2016-09-16 08:08] VITALS: O2SAT 94
[2016-09-16 09:01] VITALS: BP 152/78; PULSE 66; RESP 15; TEMP 96.8; O2SAT 93
[2016-09-16] MEDS: MEMANTINE HCL 10 MG TAB PO SCH (09:06)
[2016-09-16] MEDS: DOXYCYCLINE HYCLATE 100 MG TAB PO SCH (09:08)
[2016-09-16] MEDS: LACTOBACILLUS ACIDOPHILUS TAB PO SCH (09:10)
[2016-09-16] MEDS: AMOXICILLIN (TRIHYDRATE) 500 MG CAP PO SCH ×2 (09:10→13:58)
[2016-09-16] MEDS: DONEPEZIL HCL 5 MG TAB PO SCH (09:11)
[2016-09-16] MEDS: PANTOPRAZOLE SOD 40 MG DELAYED RELEASE TAB PO SCH (09:12)
[2016-09-16] MEDS: POTASSIUM CHLORIDE 8 MEQ CONTROLLED RELEASE TAB PO SCH (09:12)
[2016-09-16] MEDS: ENOXAPARIN SODIUM 40 MG/0.4 ML SYRINGE SQ SCH (09:13)
[2016-09-16 09:14] VITALS: O2SAT 96
[2016-09-16] MEDS: risperiDONE 0.25 MG TAB PO SCH (09:20)
[2016-09-16] MEDS: SODIUM CHLORIDE 0.9% FLUSH 5 ML FLUSH FLUSH SCH (09:21)
--- NOTE | 2016-09-16 10:29 | PD.CONS ---
Provisional Diagnosis Admission Date Sep 15, 2016 at 00:12 [place]. 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 She was brought by her . The patient was just admitted to this hospital a week ago and was discharged antibiotics. Apparently the patient has been to up in her medical follow-ups, might not be taking her medication right, she is been taking care by her who was can of disoriented when he brought her to the ER and they were both Tse acted mostly for safety. Chart was extensively review, case discussed with primary care physician and nurse in charge, collateral information from her son was obtained, patient was evaluated at bedside in the medical floor in [place]. The evaluation patient was calm , cooperative, pleasantly and happily confused and demented. She used a lot of confabulation to fill up memory gaps. 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 Patient says that she is always happy, denies sadness, denies depressive symptoms, she says that her live with her is a pressure with a smile in her face. Patient denies suicidal or homicidal ideation, patient denies visual and auditory hallucinations. No aggressive behavior, agitation, paranoia, delusions were elicited, observed or reported. Patient is completely disoriented in time and place, she can recognize her , doesn't recognize her son. Her says that he takes care of her, she can feed herself, but her current needs to be prepared by him, he can bath herself, but he would have to dress her and supervise her hygiene every day. Patient denies, confirmed, the use of alcohol or any other illicit drug. Review of Systems Constitutional: DENIES: Diaphoretic episodes, Fatigue, Fever, Weight gain, Weight loss, Chills, Dizziness, Change in appetite, Night Sweats Endocrine: DENIES: Abnorml menstrual pattern, Heat/cold intolerance, Polydipsia , Polyuria, Polyphagia Eyes: DENIES: Blurred vision, Diplopia, Eye inflammation, Eye pain, Vision loss , Photosensitivity, Double Vision Ears, nose, mouth, throat: DENIES: Tinnitus, Hearing loss, Vertigo, Nasal discharge, Oral lesions, Throat pain, Hoarseness, Ear Pain, Running Nose, Epistaxis, Sinus Pain, Toothache, Odynophagia Respiratory: DENIES: Apneas, Cough, Snoring, Wheezing, Hemoptysis, Sputum production, Shortness of breath Cardiovascular: DENIES: Chest pain, Palpitations, Syncope, Dyspnea on Exertion , PND, Lower Extremity Edema, Orthopnea, Claudication Gastrointestinal: DENIES: Abdominal pain, Black stools, Bloody stools, Constipation, Diarrhea, Nausea, Vomiting, Difficulty Swallowing, Anorexia Musculoskeletal: DENIES: Joint pain, Muscle aches, Stiffness, Joint Swelling, Back pain, Neck pain Integumentary: DENIES: Abnormal pigmentation, Pruritus, Rash, Nail changes, Breast masses, Breast skin changes, Nipple discharge Hematologic/lymphatic: DENIES: Bruising, Lymphadenopathy Immunologic/allergic: DENIES: Eczema, Urticaria Psychiatric: COMPLAINS OF: Confusion Past Family Social History Coded Allergies: Latex (Unverified Allergy, Intermediate, Rash, 09/14/16) Loblolly [place] Tree (Verified Allergy, Intermediate, Hives, 09/14/16) Hives and sneezing Cardizem (Verified Allergy, Mild, FAINTING, 09/14/16) Egg Allergy (Verified Allergy, Mild, Nausea/Vomiting, 09/14/16) Neosporin (Verified Allergy, Mild, EDEMA OF EYES, 09/14/16) Tetanus Immune Globulin (Verified Allergy, Mild, EDEMA OF ARMS, 09/14/16) Tofranil (Verified Allergy, Mild, VISUAL DISTURBANCE, 09/14/16) Valium (Verified Allergy, Mild, AGITATION, 09/14/16) Sulfa (Unverified Allergy, Unknown, Unknown, 09/14/16) appears on outpatient pharmacy allergy profile. family unable to provide any clarification. Lactose (Verified Adverse Reaction, Mild, 09/14/16) Active Scripts Doxycycline Hyclate 100 Mg [id number] Mg PO BID 10 Days Ref 0 Prov:Rashaad Gunderson MD 09/13/16 Saccharomyces Boulardii (Florastor)250 Mg [id number] Mg PO BID 30 Days Ref 0 Prov:Rashaad Gunderson MD 09/13/16 Amoxicillin 500 Mg [id number] Mg PO TID #30 TAB Ref 0 Prov:Rashaad Gunderson MD 09/13/16 Walker with Front Wheels 1 Mis Mis #1 EA .ROUTE DIRECTED Ref 0 Prov:Mary Ellen Acosta PA-C 09/12/16 Reported Medications Potassium Chloride ER (Potassium Chloride CR)8 Meq Tab8 Meq PO BID Ref 0 08/31/16 Ergocalciferol (Vitamin D)50,000 Unit Cap50,000 Units PO Q7D #30 CAP Ref 0 08/31/16 Efmwyxj-Bxkdxxhuvz-Fjehfep D (Citracal+D3)250-107-500 Mg-Mg-Unit Chew1 Ea CHEW TID 08/31/16 Memantine Er (Namenda Xr)28 Mg Caper28 Mg PO DAILY #30 CAP Ref 0 08/31/16 Pantoprazole 40 Mg Tab40 Mg PO DAILY #30 TAB Ref 0 08/31/16 Donepezil 10 Mg Tab10 Mg PO BID #30 TAB Ref 0 08/31/16 Risperidone 0.25 Mg Tab0.25 Mg PO DAILY #30 TAB Ref 0 08/31/16 Current Medications Medications (Trade) Dose Ordered Sig/Loc Route Start Time Stop Time Status Last Admin (NS Flush) 2 ml UNSCH PRN FLUSH 09/15/16 00:15 (NS Flush) 2 ml BID FLUSH 09/15/16 09:00 09/16/16 09:21 (Lovenox Inj) 40 mg Q24H SQ 09/15/16 09:00 09/16/16 09:13 (Narcan Inj) 0.4 mg UNSCH PRN IV 09/15/16 00:15 (Trimox) 500 mg TID PO 09/15/16 09:00 09/16/16 09:10 (Aricept) 10 mg BID PO 09/15/16 09:00 09/16/16 09:11 (Vibratab) 100 mg BID PO 09/15/16 09:00 09/16/16 09:08 (Protonix) 40 mg DAILY PO 09/15/16 09:00 09/16/16 09:12 (KCl) 8 meq BID PO 09/15/16 09:00 09/16/16 09:12 (risperDAL) 0.25 mg DAILY PO 09/15/16 09:00 09/16/16 09:20 (Namenda) 10 mg BID PO 09/15/16 09:00 09/16/16 09:06 (Lactinex) 1 tab BID PO 09/15/16 09:00 09/16/16 09:10 (Ultram) 50 mg Q8H PRN PO 09/15/16 15:15 09/15/16 16:23 Family History She denies Social History She was born and raised in [place], she has been living in [place] for 20 years, she lives with her in an apartment in [facility], she has 3 kids, she has a master degree, 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 Physical Exam Vital Signs Vital Signs Date Time Temp Pulse Resp B/P Pulse Ox O2 Delivery O2 Flow Rate FiO2 09/16/16 09:14 96 21 09/16/16 09:01 96.8 66 15 152/78 09/16/16 08:08 Nasal Cannula 2.00 I/O 09/15/16 09/15/16 09/15/16 07:59 15:59 23:59 Intake Total 510 ml 80 ml Balance 510 ml 80 ml Mental Status Examination Appearance woman, age appearing,, good hygiene, superficially cooperative, calm, pleasantly confused Speech: Hesitant Orientation: Person Memory: Impaired (describe) Thought Process: Flight of Ideas, Loose Association Thought Content: Bizarre thinking Hallucination Type: None Suicidal Ideation: No Previous Suicide Attempts: No Homicidal Ideation: No Previous Homicide Attempts: No Insight: Poor Affect: Good Mood: Euthymic Motor Activity: Normal gait Assessment & Plan Problem List: (1) Major neurocognitive disorder with Lewy bodies, possible Assessment & Plan: On psychiatric evaluation today the patient does not present any agitation, aggressive behavior, behavior or mood dysregulation. She denies depressive symptoms, denies anxiety, denies bradford, denies perceptual disturbances. She denies visual and auditory hallucinations, she denies suicidal or homicidal ideation. As per son and , patient seems to be at baseline. Patient is disoriented, pleasantly confused, use confabulation in order to feel of memory, she is dependent on her for most of her care, is unable to function independently due to the severity of her dementia. At this moment the patient does not need any immediate psychiatric intervention, she does not meet criteria for psychiatric admission. Benefit of discharging the patient to a more structured environment with a higher level of care, such as [facility], was widely discussed with son and , they agree and they already have a plan. Tse act will be lifted. Consult appreciated. ICD Code: G31.83 Assessment & Plan Estimated LOS: days Luis De Souza MD Sep 16, 2016 10:29
[2016-09-16] MEDS ORDERED: ONDANSETRON HCL 4 MG/2 ML VIAL IV PUSH PRN (10:45)
[2016-09-16] MEDS ORDERED: PANT40TA3 PO (13:12)
[2016-09-16] MEDS ORDERED: POTA8TAB3 PO (13:12)
[2016-09-16] MEDS ORDERED: DOXY100C PO (13:12)
[2016-09-16] MEDS ORDERED: MEMA28CA PO (13:12)
[2016-09-16] MEDS ORDERED: FLOR250C PO (13:12)
[2016-09-16] MEDS ORDERED: CALC1CHW30 CHEW (13:12)
[2016-09-16] MEDS ORDERED: AMOX500T PO (13:12)
[2016-09-16] MEDS ORDERED: DONE10TA7 PO (13:12)
[2016-09-16] MEDS ORDERED: ERGO1CAP10 PO (13:12)
[2016-09-16] MEDS ORDERED: RISP0.252 PO (13:12)
--- NOTE | 2016-09-16 17:21 | HHI.PR ---
Subjective Remarks Late entry. Pt seen this morning at 10:30 a.m. She had one episode of emesis th morning. Objective Vitals Vital Signs Date Time Temp Pulse Resp B/P Pulse Ox O2 Delivery O2 Flow Rate FiO2 09/16/16 09:14 96 21 09/16/16 09:01 96.8 66 15 152/78 93 09/16/16 08:08 94 Nasal Cannula 2.00 09/16/16 04:00 96.8 73 16 174/98 94 09/16/16 00:00 97.4 78 20 163/85 91 09/15/16 20:02 93 09/15/16 20:00 97.7 83 20 159/89 96 09/15/16 19:03 18 I/O 09/15/16 09/15/16 09/15/16 09/16/16 09/16/16 09/16/16 07:00 15:00 23:00 07:00 15:00 23:00 Intake Total 510 ml 0 ml 80 ml Balance 510 ml 0 ml 80 ml Intake Oral 510 ml 80 ml IV Total 0 ml 0 ml # Voids 2 2 2 # Bowel Movements 1 0 Result Diagram: 09/15/16 0025 09/15/16 0025 Objective Remarks GENERAL: Well-nourished, well-developed patient. SKIN: Warm and dry. Squamous cell lesion on the right gregory. It is tender to palpation. HEAD: Normocephalic. EYES: No scleral icterus. No injection or drainage. NECK: Supple, trachea midline. No JVD or lymphadenopathy. CARDIOVASCULAR: Regular rate and rhythm without murmurs, gallops, or rubs. RESPIRATORY: Breath sounds equal bilaterally. No accessory muscle use. GASTROINTESTINAL: Abdomen soft, non-tender, nondistended. EXTREMITIES: No cyanosis, or edema. NEUROLOGICAL: Awake, alert, and oriented to self only. Pleasantly demented. A/P Assessment and Plan -Dementia and inability to care for self. She does not have capacity. She was Tse acted by the ED physician which has been lifted by the psychiatrist.. She will be discharged to an assisted living facility. -Squamous cell carcinoma the right lower extremity. Possibly with previous cellulitis. Does not appear infected currently. Cont amoxicillin and doxycycline as per previous regimen. Ultram when necessary pain. She needs to follow-up with Dr. Santacruz for referral to dermatology. -GERD and history of esophageal stricture. Continue PPI. Selam Mcgarry MD Sep 16, 2016 17:21
[2016-09-21] MEDS ORDERED: LIPI10TA PO (13:55)
== END 2016-09-16 15:40 ==
LOC: PHED 20:19 → INTOOBSV 09-15 00:12 → PHEDA 09-15 00:12 → PHEDH 09-15 04:12 → PH3B 09-15 13:05
PROVIDERS: ADMIT Family Medicine; ATTEND Family Medicine
DX: F01.50 Vascular dementia, unspecified severity, without behavioral disturbance, psychotic disturbance, mood disturbance, and anxiety (principal); F02.80 Dementia in other diseases classified elsewhere, unspecified severity, without behavioral disturbance, psychotic disturbance, mood disturbance, and anxiety; G30.9 Alzheimer's disease, unspecified; L03.115 Cellulitis of right lower limb; I10 Essential (primary) hypertension; R62.7 Adult failure to thrive; K21.9 Gastro-esophageal reflux disease without esophagitis; E78.00 Pure hypercholesterolemia, unspecified; J45.909 Unspecified asthma, uncomplicated; G47.30 Sleep apnea, unspecified
CPT/HCPCS: 80048; 85025; 97110; 97116; 97162; 99284; G0378; G8987; G8988; J1650; J2405